=== PATIENT | male | born 1970 | race Caucasian/White ===

== ENCOUNTER 2018-04-20 10:22 | Emergency (ER) | payer BC ==
[2018-04-20] MEDS ORDERED: methylPREDNISolone Sodium Succinate 125 MG/2 ML SDV IM ONE (10:59)
--- NOTE | 2018-04-20 19:56 | EDM.PDOC ---
ED HPI GENERAL MEDICAL PROBLEM - General Chief Complaint: Respiratory Problem Stated Complaint: COLD Time Seen by Provider: 04/20/18 10:30 Source of Information: Reports: Patient, Other (patient is [place] form [employer] and here for job site work) History Limitations: Reports: No Limitations - History of Present Illness INITIAL COMMENTS - FREE TEXT/NARRATIVE: 2 day cough and sinus pressure and moderate rhinorrhea and low grade fever uses occas marihuannam ranitidin for 'ERD, lisipril for hypertenson and smoked 20 pack years her "always gets as sinus shot of cortisone and augmentin for his sinusitis and it alway clears it up..." and he is expecting the same treatment Severity: Moderate Associated Symptoms: Reports: Headaches - Related Data Allergies Allergy/AdvReac Type Severity Reaction Status Date / Time seasonal allergies Allergy Sneezing Uncoded 04/20/18 10:32 Home Meds: Home Meds Amoxicillin/Potassium Clav [Augmentin 875-125 Tablet] 1 each PO BID #20 tablet 04/20/18 [Rx] Aspirin [Ecotrin] 81 mg PO DAILY 04/20/18 [History] Fish Oil/[place]-3 Fatty Acids [Fish Oil 1,000 MG] 1 tab PO DAILY 04/20/18 [ History] Lisinopril 20 mg PO BID 04/20/18 [History] Ranitidine HCl [Heartburn Relief] 75 mg PO BID 04/20/18 [History] Past Medical History Cardiovascular History: Reports: High Cholesterol, Hypertension Gastrointestinal History: Reports: GERD Social & Family History - Family History Family Medical History: Noncontributory - Tobacco Use Smoking Status *Q: Current Every Day Smoker Years of Tobacco use: 20 Packs/Tins Daily: 1 - Caffeine Use Caffeine Use: Reports: Coffee - Recreational Drug Use Recreational Drug Type: Reports: Marijuana/Hashish ED ROS GENERAL - Review of Systems Review Of Systems: See Below Constitutional: Reports: No Symptoms HEENT: Reports: Rhinitis, Sinus Problem Respiratory: Reports: No Symptoms Cardiovascular: Reports: No Symptoms Endocrine: Reports: No Symptoms GI/Abdominal: Reports: No Symptoms : Reports: No Symptoms Musculoskeletal: Reports: No Symptoms Skin: Reports: No Symptoms Neurological: Reports: No Symptoms Psychiatric: Reports: No Symptoms Hematologic/Lymphatic: Reports: No Symptoms Immunologic: Reports: No Symptoms ED EXAM, GENERAL - Physical Exam Exam: See Below Free Text/Narrative:: right greater than left sinus pressure Exam Limited By: No Limitations General Appearance: Alert, Moderate Distress Ears: Normal External Exam Ear Exam: Bilateral Ear: TM normal Nose: Nasal Swelling, Other (bilateral nasal turbinate swelling, 90% of the nasal chamber closed by the turbinates.moderate wilber shiners) Throat/Mouth: Normal Inspection Head: Atraumatic, Sinus Tenderness Neck: Normal Inspection, Lymphadenopathy (R), Lymphadenopathy (L) Respiratory/Chest: No Respiratory Distress Cardiovascular: Normal Peripheral Pulses, No JVD, No Murmur GI/Abdominal: Normal Bowel Sounds, Soft, Non-Tender Back Exam: Normal Inspection Extremities: Normal Inspection Neurological: Alert, Oriented, Normal Cognition Skin Exam: Warm Course - Vital Signs Last Recorded V/S: Last Vital Signs Temp 36.9 C 04/20/18 10:30 Pulse 69 04/20/18 10:30 Resp 15 04/20/18 10:30 BP 118/72 04/20/18 10:30 Pulse Ox 100 04/20/18 10:30 - Orders/Labs/Meds Meds: Medications Discontinued Medications Generic Name Dose Route Start Last Admin Trade Name Taylor PRN Reason Stop Dose Admin Methylprednisolone Sodium Succinate 125 mg 04/20/18 10:59 04/20/18 11:08 Solu-Medrol IM 04/20/18 11:00 125 mg ONETIME ONE Administration Departure - Departure Time of Disposition: 11:05 Disposition: Home, Self-Care 01 Condition: Good Clinical Impression: Sinusitis Qualifiers: Sinusitis location: maxillary Chronicity: acute Recurrence: recurrent Qualified Code(s): J01.01 - Acute recurrent maxillary sinusitis - Discharge Information *PRESCRIPTION DRUG MONITORING PROGRAM REVIEWED*: No *COPY OF PRESCRIPTION DRUG MONITORING REPORT IN PATIENT BRANDI: No Prescriptions: Amoxicillin/Potassium Clav [Augmentin 875-125 Tablet] 1 each PO BID #20 tablet Instructions: Sinusitis, Adult Referrals: PCP,None [Primary Care Provider] - Forms: ED Department Discharge Additional Instructions: sinusitis probably allergic mediated nasal congestion and sinusitis overlaid on infection follow up with your MD in 1 week if worse 1000 mg tylenol taken together with 600 mg if ibuprofen every 6 hours for pain
== END 2018-04-20 11:19 | disposition home or self-care (01) ==
LOC: FB.ED 10:22
DX: J01.01 Acute recurrent maxillary sinusitis (principal); I10 Essential (primary) hypertension; E78.00 Pure hypercholesterolemia, unspecified; F17.210 Nicotine dependence, cigarettes, uncomplicated; Z79.899 Other long term (current) drug therapy; Z79.82 Long term (current) use of aspirin; Z91.09 Other allergy status, other than to drugs and biological substances
CPT/HCPCS: 96372; 99283; J2930